=== PATIENT | female | born 1995 | race Caucasian/White ===

== ENCOUNTER 2021-06-20 15:57 | Outpatient (CLI) | payer OTHER ==
[~2021-06-20] VITALS: Ht 167 cm; Wt 113.9 kg
[2021-06-20 17:25] VITALS: BP 120/72
[2021-06-20 17:27] VITALS: BP 120/72
== END 2021-06-20 17:35 ==
LOC: WSo 15:57 → LDRP 15:57 → WSo 17:35
PROVIDERS: ATTEND Family Medicine
DX: O62.9 Abnormality of forces of labor, unspecified (principal); Z3A.38 38 weeks gestation of pregnancy
CPT/HCPCS: 99213

== ENCOUNTER 2021-06-26 06:44 | Inpatient (IN) | payer OTHER ==
[~2021-06-26] VITALS: Ht 167.7 cm; Wt 114.8 kg
[2021-06-26] VITALS (44 sets, daily range): BP systolic 87–141; BP diastolic 57–87
[2021-06-26] MEDS ORDERED: D5 LR IV SOLUTION 1,000 ML IV ONE (07:41)
[2021-06-26] MEDS ORDERED: LIDOCAINE/EPI 2% 1:200,00 (XYLOCAINE) 20 ML VIAL INJ PRN (07:45)
[2021-06-26] MEDS ORDERED: MINERAL OIL CONCENTRATE 99.9% 15 ML UDC TOP PRN (07:45)
[2021-06-26] MEDS: D5 LR IV SOLUTION 1,000 ML IV SCH ×2 (08:11→16:18)
[2021-06-26 08:26] LABS: BASOPHILS % (AUTO) 0 % (0-10); EOSINOPHILS # (AUTO) 0.1 10^3/uL (0.0-0.3); EOSINOPHILS % (AUTO) 1 % (0-10); HEMATOCRIT 39 % (35-52); LYMPHOCYTES # (AUTO) 2.1 10^3/uL (1.0-4.0); LYMPHOCYTES % (AUTO) 24 % (12-44); MEAN CORPUSCULAR HEMOGLOBIN 32 pg (25-34); MEAN CORPUSCULAR HGB CONC 34 g/dL (32-36); MEAN CORPUSCULAR VOLUME 94 fL (80-99); MEAN PLATELET VOLUME 11.2 fL (9.0-12.2); MONOCYTES # (AUTO) 0.7 10^3/uL (0.0-1.0); MONOCYTES % (AUTO) 8 % (0-12); NEUTROPHILS # (AUTO) 5.9 10^3/uL (1.8-7.8); NEUTROPHILS % (AUTO) 66 % (42-75); PLATELET COUNT 200 10^3/uL (130-400); WHITE BLOOD COUNT 8.9 10^3/uL (4.3-11.0)
[2021-06-26] MEDS ORDERED: ONDA4TAB11 PO (08:31)
[2021-06-26] MEDS ORDERED: PREN-8 PO (08:31)
[2021-06-26] MEDS ORDERED: FLU QUADRIvalent (3YOA+) 60 mcg/0.5 ml 2021-22(AFLURIA) IM ONE (09:30)
--- NOTE | 2021-06-26 10:04 | History & Physical-OB ---
OB - Chief Complaint & HPI Date/Time Date of Admission: Date of Admission: Jun 26, 2021 at 07:30 Date seen by a Provider: Jun 26, 2021 Time Seen by a Provider: 10:05 Chief Complaint/History OB-Reason for Admission/Chief: Rupture of Membranes (Clear) Hx : 1 Expected Date of Delivery: Jul 02, 2021 Gestational Age in Weeks: 39 Gestational Age in Days: 1 History of Labs O+, Ab neg, Rub Imm RPR/HIV/HepB/C NR Normal GTT GBS neg Allergies and Home Medications Allergies Coded Allergies: No Known Drug Allergies (Unverified , 06/26/21) Patient Home Medication List Home Medication List Reviewed: Yes Ondansetron (Ondansetron Odt) 4 Mg Tab.rapdis, 4 MG PO, (Reported) Entered as Reported by: CY YEPEZ on 06/26/21830 Last Action: New Order Vit W-Ca,Fe,FA(<1 mg) ( Formula) 1 Each Tablet, 1 EACH PO, (Reported) Entered as Reported by: CY YEPEZ on 06/26/21830 Last Action: New Order OB - History Hx of Present Care: Yes Ultrasounds: Normal mid trimester US Obstetrical Complications: None Medical Complications: None Obstetrical History Hx : 1 Hx Para: 0 Patient Past Medical History None Social History/Family History Alcohol Use: Denies Use Smoking Cessation: Never smoker Immunizations Hepatitis A: Yes Hepatitis B: Yes Tetanus Booster (TDap): Less than 5yrs Rubella: immune RPR/VDRL: Negative GBS Status: Negative HBsAG: Negative OB - Admission Exam Physical Exam HEENT: NCAT Heart: Rhythm Normal Lungs: Clear Abdomen: Gravid Cervical Dilatation: 5cm Effacement: 75% Station: -1 Membranes: Ruptured Amniotic Fluid: Clear Heart Rate: 140's Accelerations: Accelerations Present Decelerations: No Decelerations Short Term Variability: Present Contractions on Admission: 6-10 Minutes Apart Intensity: Moderate Labs Laboratory Tests Test 06/26/21 08:10 Range/Units White Blood Count 8.9 4.3-11.0 10^3/uL Red Blood Count 4.11 3.80-5.11 10^6/uL Hemoglobin 13.0 11.5-16.0 g/dL Hematocrit 39 35-52 % Mean Corpuscular Volume 94 80-99 fL Mean Corpuscular Hemoglobin 32 25-34 pg Mean Corpuscular Hemoglobin Concent 34 32-36 g/dL Red Cell Distribution Width 13.8 10.0-14.5 % Platelet Count 200 130-400 10^3/uL Mean Platelet Volume 11.2 9.0-12.2 fL Immature Granulocyte % (Auto) 1 % Neutrophils (%) (Auto) 66 42-75 % Lymphocytes (%) (Auto) 24 12-44 % Monocytes (%) (Auto) 8 0-12 % Eosinophils (%) (Auto) 1 0-10 % Basophils (%) (Auto) 0 0-10 % Neutrophils # (Auto) 5.9 1.8-7.8 10^3/uL Lymphocytes # (Auto) 2.1 1.0-4.0 10^3/uL Monocytes # (Auto) 0.7 0.0-1.0 10^3/uL Eosinophils # (Auto) 0.1 0.0-0.3 10^3/uL Basophils # (Auto) 0.0 0.0-0.1 10^3/uL Immature Granulocyte # (Auto) 0.1 0.0-0.1 10^3/uL OB - Assessment/Plan/Diagnosis Assessment Assessment: active labor, rupture of membranes Admission Dx Third Trimester 39 week gestation SROM Active Labor Admission Status: Inpatient Order (span 2 midnights) Reason for Inpatient Admission: Active Labor Plan Other Plan 25 yo G1 @ 39.1wga here after SROM clear at home Plan Augmented labor with Pitocin Epidural for pain control GBS neg Expect vaginal delivery Copy Copies To 1: MARIEL ROMAN MD, HOLLY R MD Jun 26, 2021 10:04
[2021-06-26] MEDS ORDERED: fentaNYL 2 mcg/ml BUPIVA 0.125 100 ML ONE (11:01)
[2021-06-26] MEDS ORDERED: BUPIVACAINE 0.25% 30 ML (SENSORCAINE) VIAL ONE (11:33)
[2021-06-26] MEDS ORDERED: fentaNYL INJ 100 MCG/2 ML AMP ONE (11:33)
[2021-06-26] MEDS ORDERED: ONDANSETRON 4 MG/2 ML (SDV) Z0FRAN IV PRN (11:45)
[2021-06-26] MEDS ORDERED: fentaNYL 2 mcg/ml BUPIVA 0.125 100 ML IV SCH (11:45)
[2021-06-26] MEDS ORDERED: NALOXONE 0.4 MG/ML 1 ML (NARCAN) VIAL IV PRN (11:45)
[2021-06-26] MEDS ORDERED: diphenhydrAMINE 50 MG/ML INJ (BENADRYL) IV PRN (11:45)
[2021-06-26] MEDS ORDERED: CATHETER FLUSH 10 ML SYR IV PRN (11:45)
[2021-06-26] MEDS ORDERED: LACTATED RINGERS 1,000 ML IV ONE (11:45)
[2021-06-26] MEDS ORDERED: OXYTOCIN PRE-MIX DRIP 500 ML IV SCH ×2 (12:00→18:45)
[2021-06-26] MEDS ORDERED: OXYTOCIN PRE-MIX DRIP 500 ML IV ONE (12:15)
[2021-06-26] MEDS ORDERED: CATHETER FLUSH 10 ML SYR IV SCH ×2 (14:00→22:00)
--- NOTE | 2021-06-26 17:40 | Labor Progress Note ---
Labor Progress Note Labor Progress Note Date Seen by Provider: Jun 26, 2021 Time Seen by Provider: 17:37 Subjective: Pt denies complaints. Feeling more pressure. Epidural Objective: / Assessment/Plan: Yennifer Louis is a (25 /Para / ,Gestational Age (wks)39.1 here after SROM at home clear CEFM/TOCO Continue pitocin augmentation Anesthesia: Epidural GBS neg Anticipate vaginal delivery. Vitals - Labs Vital Signs - I&O Vital Signs Date Time Temp Pulse Resp B/P (MAP) Pulse Ox O2 Delivery O2 Flow Rate FiO2 06/26/21 16:50 78 20 113/60 (77) Room Air 06/26/21 16:35 78 20 108/57 (74) Room Air 06/26/21 16:20 36.6 76 20 103/60 (74) Room Air 06/26/21 16:05 80 20 122/75 (91) Room Air 06/26/21 15:50 84 20 131/76 (94) Room Air 06/26/21 15:35 93 20 123/73 (90) Room Air 06/26/21 15:20 81 20 121/75 (90) Room Air 06/26/21 15:05 80 20 110/70 (83) Room Air 06/26/21 14:50 112/59 (76) 06/26/21 14:30 80 20 113/70 (84) Room Air 06/26/21 14:20 83 20 119/73 (88) Room Air 06/26/21 14:05 88 20 115/74 (88) Room Air 06/26/21 13:50 84 20 120/76 (91) Room Air 06/26/21 13:35 80 20 114/70 (85) Room Air 06/26/21 13:20 83 20 115/70 (85) Room Air 06/26/21 13:05 86 20 112/71 (85) 96 Room Air 06/26/21 12:45 80 20 119/70 (86) 96 Room Air 06/26/21 12:40 88 20 126/73 (90) 97 Room Air 06/26/21 12:35 81 20 127/83 (98) 99 Room Air 06/26/21 12:30 86 20 87/71 (76) 98 Room Air 06/26/21 12:23 79 20 121/75 (90) 98 Room Air 06/26/21 12:19 88 20 127/79 (95) 98 Room Air 06/26/21 12:16 86 20 131/79 (96) 98 Room Air 06/26/21 12:13 81 20 117/64 (81) 98 Room Air 06/26/21 12:10 75 20 124/75 (91) 97 Room Air 06/26/21 12:07 77 20 118/71 (87) 97 Room Air 06/26/21 12:04 88 20 123/75 (91) 97 Room Air 06/26/21 12:01 88 20 126/72 (90) 97 Room Air 06/26/21 11:58 85 20 125/76 (92) 97 Room Air 06/26/21 11:55 36.6 80 20 119/69 (86) 98 Room Air 06/26/21 11:50 78 20 124/76 (92) 06/26/21 11:45 96 20 129/87 (101) 06/26/21 11:10 36.8 86 20 118/66 (83) 06/26/21 07:10 36.5 96 18 98 Room Air Labs Laboratory Tests 06/26/21 08:10: White Blood Count 8.9, Red Blood Count 4.11, Hemoglobin 13.0, Hematocrit 39, Mean Corpuscular Volume 94, Mean Corpuscular Hemoglobin 32, Mean Corpuscular Hemoglobin Concent 34, Red Cell Distribution Width 13.8, Platelet Count 200, Mean Platelet Volume 11.2, Immature Granulocyte % (Auto) 1, Neutrophils (%) (Auto) 66, Lymphocytes (%) (Auto) 24, Monocytes (%) (Auto) 8, Eosinophils (%) (Auto) 1, Basophils (%) (Auto) 0, Neutrophils # (Auto) 5.9, Lymphocytes # (Auto) 2.1, Monocytes # (Auto) 0.7, Eosinophils # (Auto) 0.1, Basophils # (Auto) 0.0, Immature Granulocyte # (Auto) 0.1 TIKI PLASENCIA MD Jun 26, 2021 17:40
--- NOTE | 2021-06-26 18:38 | OB Labor & Delivery Record ---
Vag Delivery Note Vag Delivery Note Date of Delivery: 06/26/21 Preoperative Diagnosis: Yennifer Louis is a (25 /Para 1 / 0,Gestational Age (wks)39.1 here after SROM at home Postoperative Diagnosis: Same Surgeon: TIKI PLASENCIA MD Insole Doubler: None Anesthesia: epidural Delivery Type: @ 181 Findings: Viable male , apgars 8/9, weight 6#10, 3000 grams Lacerations: 2nd degree perineal Intact placenta with 3 vessel cord. No nuchal cord, body cord or shoulder dystocia Estimated Blood Loss: 125 ml Complications: None Condition: Stable Description of Procedure: The patient is a 25 year old female who presented in active labor after SROM at home. She was admitted and informed consent was obtained. Her labor course was unremarkable. She progressed to complete dilatation and began to push. She was then set up for delivery. The infant's head was delivered atraumatically in the YANCY position. The shoulders and remainder of the infant's body were then delivered without difficulty. Upon delivery was vigorous and infant was placed on maternal abdomen and nares were bulb suctioned. The cord was doubly clamped and cut by FOB after 2 min delay and the was attended to by the pediatric staff on maternal abdomen. An intact placenta with 3-vessel cord delivered via Noah and there was found to be minimal bleeding.~ Vigorous fundal massage was performed and the fundus was found to be firm. IV oxytocin was given. Examination of the vagina and perineum revealed a 2nd degree laceration repaired in the usual fashion with 3-0 vicryl suture. Following the repair, sponge, instrument and needle counts were correct. Mom and baby were both in stable condition in the labor suite. Vitals - Labs Vital Signs - I&O Vital Signs Date Time Temp Pulse Resp B/P (MAP) Pulse Ox O2 Delivery O2 Flow Rate FiO2 06/26/21 16:50 78 20 113/60 (77) Room Air 06/26/21 16:35 78 20 108/57 (74) Room Air 06/26/21 16:20 36.6 76 20 103/60 (74) Room Air 06/26/21 16:05 80 20 122/75 (91) Room Air 06/26/21 15:50 84 20 131/76 (94) Room Air 06/26/21 15:35 93 20 123/73 (90) Room Air 06/26/21 15:20 81 20 121/75 (90) Room Air 06/26/21 15:05 80 20 110/70 (83) Room Air 06/26/21 14:50 112/59 (76) 06/26/21 14:30 80 20 113/70 (84) Room Air 06/26/21 14:20 83 20 119/73 (88) Room Air 06/26/21 14:05 88 20 115/74 (88) Room Air 06/26/21 13:50 84 20 120/76 (91) Room Air 06/26/21 13:35 80 20 114/70 (85) Room Air 06/26/21 13:20 83 20 115/70 (85) Room Air 06/26/21 13:05 86 20 112/71 (85) 96 Room Air 06/26/21 12:45 80 20 119/70 (86) 96 Room Air 06/26/21 12:40 88 20 126/73 (90) 97 Room Air 06/26/21 12:35 81 20 127/83 (98) 99 Room Air 06/26/21 12:30 86 20 87/71 (76) 98 Room Air 06/26/21 12:23 79 20 121/75 (90) 98 Room Air 06/26/21 12:19 88 20 127/79 (95) 98 Room Air 06/26/21 12:16 86 20 131/79 (96) 98 Room Air 06/26/21 12:13 81 20 117/64 (81) 98 Room Air 06/26/21 12:10 75 20 124/75 (91) 97 Room Air 06/26/21 12:07 77 20 118/71 (87) 97 Room Air 06/26/21 12:04 88 20 123/75 (91) 97 Room Air 06/26/21 12:01 88 20 126/72 (90) 97 Room Air 06/26/21 11:58 85 20 125/76 (92) 97 Room Air 06/26/21 11:55 36.6 80 20 119/69 (86) 98 Room Air 06/26/21 11:50 78 20 124/76 (92) 06/26/21 11:45 96 20 129/87 (101) 06/26/21 11:10 36.8 86 20 118/66 (83) 06/26/21 07:10 36.5 96 18 98 Room Air Labs Laboratory Tests 06/26/21 08:10: White Blood Count 8.9, Red Blood Count 4.11, Hemoglobin 13.0, Hematocrit 39, Mean Corpuscular Volume 94, Mean Corpuscular Hemoglobin 32, Mean Corpuscular Hemoglobin Concent 34, Red Cell Distribution Width 13.8, Platelet Count 200, Mean Platelet Volume 11.2, Immature Granulocyte % (Auto) 1, Neutrophils (%) (Auto) 66, Lymphocytes (%) (Auto) 24, Monocytes (%) (Auto) 8, Eosinophils (%) (Auto) 1, Basophils (%) (Auto) 0, Neutrophils # (Auto) 5.9, Lymphocytes # (Auto) 2.1, Monocytes # (Auto) 0.7, Eosinophils # (Auto) 0.1, Basophils # (Auto) 0.0, Immature Granulocyte # (Auto) 0.1 TIKI PLASENCIA MD Jun 26, 2021 18:37
[2021-06-26] MEDS ORDERED: WITCH HAZEL(TUCKS) 40 EA JAR TOP PRN (18:45)
[2021-06-26] MEDS ORDERED: TETANUS,DIPTH,PERTUSS P/F (BOOSTRIX) 0.5 ML VIAL IM ONE (18:45)
[2021-06-26] MEDS ORDERED: BENZOCAINE/MENTHOL (DERMOPLAST) 56 ML CAN TP PRN (18:45)
[2021-06-26] MEDS ORDERED: IBUPROFEN 600 MG (MOTRIN) TAB PO ONE (20:30)
[2021-06-26] MEDS: IBUPROFEN 600 MG (MOTRIN) TAB PO SCH (21:00)
[2021-06-26] MEDS: DOCUSATE SODIUM 100 MG (COLACE) CAP PO SCH (21:00)
[2021-06-27] MEDS: ACETAMINOPHEN 500 MG TAB (TYLENOL) PO SCH ×3 (00:57→17:25)
[2021-06-27 00:59] VITALS: BP 127/73
[2021-06-27 04:47] VITALS: BP 119/75
[2021-06-27] MEDS: IBUPROFEN 600 MG (MOTRIN) TAB PO SCH ×3 (04:48→19:40)
[2021-06-27 06:05] LABS: BASOPHILS % (AUTO) 0 % (0-10); EOSINOPHILS # (AUTO) 0.1 10^3/uL (0.0-0.3); EOSINOPHILS % (AUTO) 1 % (0-10); HEMATOCRIT 35 % (35-52); HEMOGLOBIN 11.7 g/dL (11.5-16.0); LYMPHOCYTES # (AUTO) 2.5 10^3/uL (1.0-4.0); LYMPHOCYTES % (AUTO) 23 % (12-44); MEAN CORPUSCULAR HEMOGLOBIN 32 pg (25-34); MEAN CORPUSCULAR HGB CONC 33 g/dL (32-36); MEAN CORPUSCULAR VOLUME 96 fL (80-99); MEAN PLATELET VOLUME 11.3 fL (9.0-12.2); MONOCYTES # (AUTO) 0.7 10^3/uL (0.0-1.0); MONOCYTES % (AUTO) 7 % (0-12); NEUTROPHILS # (AUTO) 7.3 10^3/uL (1.8-7.8); NEUTROPHILS % (AUTO) 68 % (42-75); PLATELET COUNT 176 10^3/uL (130-400); WHITE BLOOD COUNT 10.8 10^3/uL (4.3-11.0)
[2021-06-27 07:45] VITALS: BP 118/70
[2021-06-27] MEDS: DOCUSATE SODIUM 100 MG (COLACE) CAP PO SCH (08:29)
--- NOTE | 2021-06-27 10:36 | Anesthesia-Regional Post-Op ---
Regional Patient Condition Mental Status: Alert, Oriented x3 Circulation: Same as Pre-Op Headache: Absent Sensation: Full Recovery Motor Block: Absent Post Op Complications Complications None Follow Up Care/Instructions Patient Instructions None needed. Anesthesia/Patient Condition Patient is doing well, no complaints, stable vital signs, no apparent adverse anesthesia problems. No complications reported per nursing. RON BRAY CRNA Jun 27, 2021 10:36
[2021-06-27 12:08] VITALS: BP 123/76
[2021-06-27 19:42] VITALS: BP 117/77
--- NOTE | 2021-06-27 21:42 | Postpartum Progress Note ---
Note Note Day # 1 Subjective: Patient is without complaints. Ambulating, voiding. Tolerating a regular diet without nausea or vomiting. Normal lochia. Pain is well controlled with oral pain medications. breast feeding. nurse to see patient today Objective: Physical Exam: General - Alert and oriented, no apparent distress Abdomen - Soft, appropriately tender to palpation, non-distended, fundus firm at umbilicus Extremities - no edema, negative Jose Luis's bilaterally Assessment: 25 yo G1 now P1 post- day # 1, status post uncomplicated vaginal delivery. Recovering well, hemodynamically stable Plan: Routine care. Encourage breast feeding. Encourage ambulation. Ferrous sulfate supplementation. Plan for discharge in AM with [address] Nesbitt Vitals - Labs Vital Signs - I&O Vital Signs Date Time Temp Pulse Resp B/P (MAP) Pulse Ox O2 Delivery O2 Flow Rate FiO2 06/27/21 19:42 36.8 87 18 117/77 (90) 99 Room Air 06/27/21 12:08 36.4 95 18 123/76 (92) 100 Room Air 06/27/21 07:45 36.8 80 18 118/70 (86) 97 Room Air 06/27/21 04:47 36.7 92 18 119/75 (90) 99 Room Air 06/27/21 00:59 36.4 95 18 127/73 (91) 99 Room Air I & O 06/27/21 07:00 Intake Total 500 ml Balance 500 ml Labs Laboratory Tests 06/27/21 05:52: White Blood Count 10.8, Red Blood Count 3.64L, Hemoglobin 11.7, Hematocrit 35, Mean Corpuscular Volume 96, Mean Corpuscular Hemoglobin 32, Mean Corpuscular Hemoglobin Concent 33, Red Cell Distribution Width 13.9, Platelet Count 176, Mean Platelet Volume 11.3, Immature Granulocyte % (Auto) 1, Neutrophils (%) (Auto) 68, Lymphocytes (%) (Auto) 23, Monocytes (%) (Auto) 7, Eosinophils (%) (Auto) 1, Basophils (%) (Auto) 0, Neutrophils # (Auto) 7.3, Lymphocytes # (Auto) 2.5, Monocytes # (Auto) 0.7, Eosinophils # (Auto) 0.1, Basophils # (Auto) 0.0, Immature Granulocyte # (Auto) 0.2H TIKI PLASENCIA MD Jun 27, 2021 21:42
[2021-06-28] MEDS: IBUPROFEN 600 MG (MOTRIN) TAB PO SCH ×3 (01:42→20:04)
[2021-06-28 02:00] VITALS: BP 122/77
--- NOTE | 2021-06-28 09:25 | Discharge Summary ---
Diagnosis/Chief Complaint Date of Admission Jun 26, 2021 at 07:30 Date of Discharge Discharge Summary-Simple/Stand Discharge Physical Examination Allergies: Coded Allergies: No Known Drug Allergies (Unverified , 06/26/21) Vitals & I&Os Vital Sign - Last 12Hours Date Time Temp Pulse Resp B/P (MAP) Pulse Ox O2 Delivery O2 Flow Rate FiO2 06/28/21 02:00 36.7 86 18 122/77 (92) 99 Room Air Hospital Course See final discharge diagnosis. Discharge Instructions to patient/family Please see electronic discharge instructions given to patient. Discharge Medications Reviewed and agree with Discharge Medication list on patient's Discharge Instruction sheet TIKI PLASENCIA MD Jun 28, 2021 09:25
[2021-06-28] MEDS ORDERED: IBUP-844 PO (09:26)
[2021-06-28] MEDS ORDERED: DOCU100C37 PO (09:26)
--- NOTE | 2021-06-28 09:27 | Discharge Summary ---
Discharge Inst-[facility] Depart Medications New, Converted or Re-Newed RX: RX on Chart New Medications: Docusate Sodium (Docusate Sodium) 100 Mg Capsule 100 MG PO BID, #14 CAP Ibuprofen (Ibu) 600 Mg Tablet 600 MG PO Q6HR, #90 TAB Continued Medications: Vit W-Ca,Fe,FA(<1 mg) ( Formula) 1 Each Tablet 1 EACH PO, TAB Discontinued Medications: Ondansetron (Ondansetron Odt) 4 Mg Tab.rapdis 4 MG PO, TAB Follow Up/Instructions Goal/Follow Up: [address] Nesbitt Activity Activity: Activity as Tolerated Driving Instructions: You May Drive Nothing Inside Vagina: No Douching, No Lawn, No Tampons Diet Discharge Diet: No Restrictions Symptoms to Report to : Bleeding Excessive, Fever Over 101 Degrees F, Lightheadedness For Any Problems or Questions: Contact Your Physician TIKI PLASENCIA MD Jun 28, 2021 09:27
[2021-06-28] MEDS: ACETAMINOPHEN 500 MG TAB (TYLENOL) PO SCH (10:25)
[2021-06-28] MEDS: DOCUSATE SODIUM 100 MG (COLACE) CAP PO SCH ×2 (10:25→20:04)
[2021-06-28 10:28] VITALS: BP 119/76
--- NOTE | 2021-06-28 12:10 | Diagnostic Imaging Report ---
PROCEDURE: US Venous Lower Ext Oli. TECHNIQUE: Multiple real-time grayscale images were obtained over the lower extremities in various projections, bilaterally. Additional duplex Doppler and color Doppler images were also obtained. INDICATION: Bilateral calf pain. Comparison: Non available. Findings: The bilateral common femoral, femoral and popliteal veins are patent by color doppler imaging and without DVT. Visualized proximal aspects of the greater saphenous, deep femoral, posterior tibial and peroneal veins are also patent. All of the evaluated deep venous structures demonstrate normal compressibility and waveform augmentation where applicable. Impression: No deep venous thrombosis in either of the lower extremities. Dictated by: Dictated on workstation # [id number]
== END 2021-06-28 13:55 | disposition home or self-care (01) | DRG 807 ==
LOC: WSo 06:44 → LDRP 07:30
PROVIDERS: ADMIT Family Medicine; ATTEND Family Medicine
PROC: 10E0XZZ Delivery of Products of Conception, External Approach (ICD-10-PCS; principal; 2021-06-26)
PROC: 0KQM0ZZ Repair Perineum Muscle, Open Approach (ICD-10-PCS; 2021-06-26)
DX: O70.1 Second degree perineal laceration during delivery (principal); Z37.0 Single live birth; Z3A.39 39 weeks gestation of pregnancy; Z23 Encounter for immunization
CPT/HCPCS: 36415; 85025; 86850; 86900; 86901; 93970; 99212